=== PATIENT | male | born 1985 | race Caucasian/White ===

== ENCOUNTER 2016-08-27 16:21 | Emergency (ER) | payer MEDICAID, OTHER ==
[~2016-08-27] VITALS: Ht 172.7 cm; Wt 70.0 kg
[2016-08-27 16:29] VITALS: BP 132/83; PULSE 84; RESP 16; O2SAT 98
--- NOTE | 2016-08-27 18:39 | ED.REPORT ---
HPI-Abd Pain M Under 38 Date of Service Aug 27, 2016 ED Provider: Wilfred Last DO Pt is a 30 y.o. male who presents to the ED c/o right testicular pain radiating to his abdomen onset 1 week ago. Pt states that he received a vasectomy 1 week ago and since then has been experiencing severe right testicular pain resulting in difficulty ambulating. He also reports associated subjective fevers. He states that during the procedure, performed by Dr. Heard, he experienced extreme pain primarily to his left testicle and that he was given "three times the normal dose" of local anaesthetic. He says that he contacted the clinic and they said his pain was normal and to follow-up in two months. Nursing Notes Stated Complaint: GENERAL COMPLAINT Chief Complaint: Male Abdominal Pain Nursing Notes Reviewed: Yes Allergies: Coded Allergies: No Known Allergies (Verified , 08/27/16) Uncoded Allergies: No Known Allergies (Allergy, Severe, 11/29/03) General Time Seen by MD: 18:38 Chief Complaint Testicular pain R Hx Obtained From: Patient Arrived By: Walk-in Sudden in Onset?: Yes Onset Occurred: 1 week ago Context of Onset: Recent surgery Symptom Duration: Since onset Quality: Painful Radiation: : Abdomen lower Severity: Current: Severe Exacerbated by: Movement Past Medical History Past Medical History None reported Past Surgical History None reported Smoking History Current Some Day Smoker Social History Drug Use: THC Ambulatory Status Independent Review of Systems Constitutional: Reports: Fever (Subjective) GI: Reports: Abdominal pain Male: Reports Testicular pain Complete sys rev & neg: except as marked. Neurologic: Reports: Problem walking (due to pain) Physical Exam Initial Vital Signs Vital Signs (First) Date Time Temp Pulse Resp B/P Pulse Ox O2 Delivery O2 Flow Rate FiO2 08/27/16 16:29 36.7 84 16 132/83 98 Room Air Initial VS: Reviewed Head / Eyes: Atraumatic, Normocephalic Extremities: Vascular intact, Neuro intact Skin: Warm, Dry, No cyanosis Neurologic: Alert, Oriented, Nonfocal Psychiatric: Mood/affect normal, Behavior normal, Normal thought content General/Constitutional: Awake, Alert, Well appearing, Well developed, Well hydrated, Well nourished, Not toxic appearing Appearance / Presentation: Positive: Uncomfortable Respiratory / Chest: Atraumatic, Breath sounds NL, No respiratory distress Cardiovascular: Heart rate NL, Regular rhythm, Cap refill not delayed, Peripheral circulation NL Abdomen: Atraumatic, Soft, No guarding, No rebound, No distention Back: Atraumatic Testes / Epidid / Scrotum: Positive: Testis tender L, Testis tender R Trauma: Positive: Ecchymosis (Scrotal) Interpretation & Diagnostics PROCEDURE: US TESTICULAR SONOGRAM WITH DOPPLER IMPRESSION: 1. Testicles and epididymides considered normal. 2. 2.5 cm heterogeneous but overall echogenic mass with increased vascularity within it superior to the right testicle and epididymis with vasculature extending upwards towards the and into the inguinal canal on the right. Hernia movement cannot be identified but the appearance would suggest possibility of something trapped within the upper scrotum from the inguinal canal. This echogenic vascular focus is the site of the tenderness and pain. Dictated by: Kevin Hyatt M.D. on 08/27/2016 at 20:30 case was discussed with Dr. Last Approved by: Kevin Hyatt M.D. on 08/27/2016 at 20:34 Lab Results Interpretation Result Diagram: 08/27/16 1859 08/27/16 1859 Test 08/27/16 18:59 08/27/16 21:03 White Blood Count 8.9th/mm3 (3.8-10.1) Red Blood Count 5.11mil/mm3 (4.40-5.80) Hemoglobin 16.1g/dL (13.8-17.2) Hematocrit 45.4% (41.0-50.0) Mean Corpuscular Volume 88.8fL (81-100) Mean Corpuscular Hemoglobin 31.5pg (27.0-35.0) Mean Corpuscular Hemoglobin Concent 35.5% (32.0-37.0) Red Cell Distribution Width 12.2% (12.3-15.4) Platelet Count 256bil/L (150-400) Neutrophils (%) (Auto) 76.5% (40-74) Lymphocytes (%) (Auto) 17.7% (14-46) Monocytes (%) (Auto) 4.5% (4-12) Eosinophils (%) (Auto) 1.0% (0-5) Basophils (%) (Auto) 0.1% (0-3) Sodium Level 139mEq/L (134-144) Potassium Level 4.8mEq/L (3.5-5.2) Chloride Level 101mEq/L (97-108) Carbon Dioxide Level 26mmol/L (18-29) Blood Urea Nitrogen 21mg/dL (6-20) Creatinine 0.82mg/dL (0.76-1.27) Estimat Glomerular Filtration Rate 116mL/min (>59) Glucose Level 96mg/dL (60-99) Calcium Level 9.5mg/dL (8.5-10.1) Total Bilirubin 0.2mg/dL (0.0-1.2) Aspartate Amino Transf (AST/SGOT) 18U/L (0-50) Alanine Aminotransferase (ALT/SGPT) 12U/L (0-44) Alkaline Phosphatase 44U/L (25-150) Total Protein 8.1g/dL (6.4-8.4) Albumin 4.8g/dL (3.4-5.0) Hold [place] Top Tube Received (Received) Urine Color Yellow (YELLOW) Urine Appearance Clear (CLEAR,HAZY) Urine pH 6.5 (5.0-8.0) Urine Specific [place] 1.025 (1.003-1.035) Urine Protein Negativemg/dL (NEG,TRACE) Urine Glucose (UA) Negativemg/dL (NEGATIVE) Urine Ketones Negativemg/dL (NEGATIVE) Urine Occult Blood Negative (NEGATIVE) Urine Nitrite Negative (NEGATIVE) Urine Bilirubin Negative (NEGATIVE) Urine Urobilinogen Normalmg/dL (NORMAL) Urine Leukocyte Esterase Negative (NEGATIVE) Urine RBC 0-2/hpf (0-2) Urine WBC 0-5/hpf (0-5) Urine Epithelial Cells Occasional/hpf (NONE-MOD) Urine Crystals None seen (NONE SEEN) Urine Bacteria None/hpf (NONE-FEW) Urine Hyaline Casts None/lpf (NONE) Urine Granular Casts None seen (NONE SEEN) Urine Waxy Casts None seen (NONE SEEN) Urine Red Blood Cell Casts None seen (NONE SEEN) Urine White Blood Cell Casts None seen (NONE SEEN) Urine Mucus None seen (None Seen) Urine Trichomonas None seen (NONE SEEN) Urine Yeast None (NONE SEEN) Urinalysis Comment None Urine Culture Reflexed Not indicated BMP / CMP Interpretation BUN elevated Re-Eval/Medical Decision Source of Hx: Old records Re-Evaluation/Progress : Time of Eval: 18:53 Re-Evaluation/Progress Note: Physical exam performed. Discussed with pt need for urine sample and testicular US, pt understands and agrees with plan. Consultation #1: Referral / Consult Name: Ivonne Andres MD Consulted With: Urology Call Returned at: 21:21 Note: Discussed pt condition, will review imaging and return call. Consultation #2: Call Returned at: 21:30 Note: Dr. Andres returned call. Recommends pt make follow-up appointment and wear scrotal support. Counseled Regarding: Diagnosis, Lab results, Need for follow-up, When/why to return to ED Patient Discharge & Departure Primary Impression: Scrotal pain Additional Impression: Post-operative pain Disposition: Home Discharge Condition All VS Reviewed: Yes Condition: Stable Patient Instructions: Postop pain (ED) Additional Instructions: The ultrasound shows postoperative changes. I consulted with Dr. Andres who is a urologist. He was aware of your case. He reviewed the ultrasound and he feels that these are postoperative changes to be expected after vasectomy. He recommends pain control and that you wear scrotal support. Wear the jockstrap that you purchased. Take 1-2 Percocet every 6 hours as needed for pain. Contact your urologist in morning for a follow-up appointment. Tell them that you were seen in the emergency department we did an ultrasound. Do not drive or drink alcohol or consume acetaminophen while taking the Percocet. Return if any problems or any worsening symptoms. Referrals: [facility]OPCP (PCP) [facility] Jasvir Attestation Portions of this note were transcribed by Salvador Faith. I, Dr. Last personally performed the history, physical exam and medical decision-making; I reviewed and confirmed the accuracy of the information in the transcribed note. Signed by : Jasvir Redmond, 08/27/16 and 2137. copies to: Elsy Heard MD; [facility] Wilfred Last DO Aug 27, 2016 18:39 SALVADOR FAITH Aug 27, 2016 18:59
[2016-08-27] MEDS ORDERED: HYDROmorphone 1 mg/mL Inj IM ONE (18:50)
[2016-08-27] MEDS ORDERED: Ketorolac 30 mg/mL 2 mL Inj IM ONE (18:50)
[2016-08-27 19:10] LABS: BASOPHILS % (AUTO) 0.1 % (0-3); MONOCYTES % (AUTO) 4.5 % (4-12); Mean Corpuscular Hemoglobin 31.5 pg (27.0-35.0); Mean Corpuscular Volume 88.8 fL (81-100); NEUTROPHILS % (AUTO) 76.5 % (40-74); Platelet Count 256 bil/L (150-400)
--- NOTE | 2016-08-27 20:36 | DRSVH ---
PROCEDURE: US TESTICULAR SONOGRAM WITH DOPPLER INDICATIONS: post vasectomy right testicular pain and swelling TECHNIQUE: Real-time scanning was performed of the scrotum and testicles, with image documentation. Color and p ulse Doppler interrogation was performed of both testicles. COMPARISON: None. FINDINGS: Right: Testicle is normal in size at 4.2 x 2.3 x 2.9 cm, and homogenous in echotexture. Epididymis is normal in overall size and morphology. No hydrocele or varicoceles. Overlying scrotal skin is no rmal in thickness. Left: Testicle is normal in size at 4.1 x 2.0 x 3.0 cm, and homogeneous in echotexture. Epididymis is normal in overall size and morphology. No hydrocele or varicoceles. Overlying scrotal skin is no rmal in thickness. Doppler: Color and pulse Doppler demonstrate normal and symmetric arterial flow in both testicles. Miscellaneous: From a level of the inguinal canal but vasculature can be tracked inferiorly into the upper aspect of the right scrotum there is a 25 x 24 x 17 mm heterogeneous but overall hyperechoic hy pervascular lesion. Adjacent to this is a small amount of fluid. No abnormal vasculature around the f luid to suggest abscess is seen. With Valsalva no movement within the inguinal canal is identified. T his structure is thought to be separate from the epididymis and the right testicle both of which are considered normal. IMPRESSION: 1. Testicles and epididymides considered normal. 2. 2.5 cm heterogeneous but overall echogenic mass with increased vascularity within it superior to t he right testicle and epididymis with vasculature extending upwards towards the and into the inguinal canal on the right. Hernia movement cannot be identified but the appearance would suggest possibilit y of something trapped within the upper scrotum from the inguinal canal. This echogenic vascular focu s is the site of the tenderness and pain. Dictated by: Kevin Hyatt M.D. on 08/27/2016 at 20:30 case was discussed with Dr. Last Approved by: Kevin Hyatt M.D. on 08/27/2016 at 20:34
[2016-08-27] MEDS ORDERED: _oxyCODONE/APAP 5-325 mg Tablet PO PRN (21:30)
[2016-08-27 21:31] LABS: APPEARANCE,URINE CLEAR (CLEAR,HAZY); COLOR,URINE YELLOW (YELLOW); OCCULT BLOOD,URINE NEGATIVE (NEGATIVE); PH,URINE 6.5 (5.0-8.0); UROBILINOGEN,URINE NORMAL (NORMAL)
== END 2016-08-27 21:43 | disposition home or self-care (01) ==
LOC: SED 16:21
DX: N50.811 Right testicular pain (principal); G89.18 Other acute postprocedural pain; R10.9 Unspecified abdominal pain; F17.200 Nicotine dependence, unspecified, uncomplicated
CPT/HCPCS: 36415; 76870; 80053; 81000; 85025; 93975; 96372; 99285; J1170; J1885